=== PATIENT | male | born 1945 | race Caucasian/White ===

== ENCOUNTER → 2022-04-16 | Outpatient (CLI) | payer MEDICARE, OTHER, SELFPAY ==
--- NOTE | 2022-04-16 13:59 | CDU_ITS ---
Reason For Study: retinal ischemia Rt. Velocities/BP Lt. Velocities/BP Prox CCA 83.4/17.3 cm/sec. Prox CCA 90.0/26.2 cm/sec. Mid CCA 68.3/18.2 cm/sec. Mid CCA 92.5/31.1 cm/sec. Dist CCA 66.4/18.2 cm/sec. Dist CCA 66.7/20.0 cm/sec. Prox ICA 55.1/12.6 cm/sec. Prox ICA 41.0/11.3 cm/sec. Mid ICA 41.9/12.6 cm/sec. Mid ICA 36.4/11.7 cm/sec. Dist ICA 65.2/23.5 cm/sec. Dist ICA 51.1/20.2 cm/sec. Rt. ICA/CCA = 1.0. Lt. ICA/CCA = .6. Prox ECA 100.3/17.9 cm/sec. Prox ECA 83.9/21.2 cm/sec. Rt. Vert. 35.2/11.6 cm/sec. Lt. Vert. 34.4/9.1 cm/sec. Right Extracranial There is homogeneous, smooth atherosclerotic plaque noted in the right common carotid artery. There is homogeneous, smooth atherosclerotic plaque noted in the right internal carotid artery. There is intimal thickening but no significant atherosclerotic plaque noted in the right external carotid artery. Antegrade flow is noted in the right vertebral artery. Left Extracranial There is homogeneous, smooth atherosclerotic plaque noted in the left common carotid artery. There is homogeneous, smooth atherosclerotic plaque noted in the left internal carotid artery. There is homogeneous, smooth atherosclerotic plaque noted in the left external carotid artery. Antegrade flow is noted in the left vertebral artery. Procedure Carotid Duplex 16713. This is a Carotid Duplex examination using B-mode, color flow and specral Doppler. The exam was diagnostic. Exam performed in department. VL/Carotid Duplex Ultrasound Interpretation Summary Minimal smooth plaque bilateral proximal internal carotid arteries with less th an 50% stenosis Less than 50% stenosis bilateral external carotid arteries Patent and antegrade vertebral arteries bilaterally Ordering Physician: Emre Dillon Performed By: Rush Gee RVT
== END | disposition home or self-care (01) ==
PROVIDERS: PCP Family Medicine; Visit Provider Ophthalmology
DX: H35.82 Retinal ischemia (principal)
CPT/HCPCS: 93880